=== PATIENT | female | born 1930 | race Caucasian/White ===

== ENCOUNTER 2017-09-11 09:05 | Outpatient (RCR) | payer MEDICARE, OTHER | END 2017-10-05 | LOC: WCC 09:05 | PROVIDERS: ATTEND Family Medicine Adult Medicine | DX: E11.65 Type 2 diabetes mellitus with hyperglycemia (principal); L89.151 Pressure ulcer of sacral region, stage 1; I10 Essential (primary) hypertension; E78.2 Mixed hyperlipidemia; Z74.01 Bed confinement status ==